=== PATIENT | female | born 1940 | race Caucasian/White ===

== ENCOUNTER 2016-08-24 17:02 | Inpatient (IN) | payer OTHER ==
[~2016-08-24] VITALS: Ht 160 cm; Wt 57.7 kg
[~2016-08-24 17:02] MED LIST: AMLODIPINE BESY10 MG PO; ATARAX,VISTARIL25 MG PO; BENADRYL25 MG PO; CELEXA10 MG PO; DURAGESIC25 MCG TD; HYDROCHLOROTH12.5 M3 PO; LOPRESSOR50 MG PO; NEXIUM40 MG PO; PERCOCET 5/31 TABLET PO; ULTRAM50 MG PO; XANAX0.25 MG PO
[2016-08-24 18:38] LABS: EOSINOPHIL (%) 0.4 % (0-5); HEMATOCRIT 40.5 % (36.0-46.0); IMMATURE GRANULOCYTE (%) 0.1 % (0.0-0.7); IMMATURE GRANULOCYTE COUNT 0.1 K/uL; LYMPHOCYTE COUNT 0.8 K/uL (1.0-2.8); MCH 30.9 PG (29.0-34.0); MCHC 34.3 G/DL (30.0-36.0); MONOCYTE (%) 1.9 % (3-12); MONOCYTE COUNT 0.2 K/uL (0-0.8); NEUTROPHIL (%) 87.8 % (45-76); PLATELET COUNT 226 K/uL (156-360); RBC DIS.WIDTH-CV 12.7 % (11.8-14.6); RBC DIS.WIDTH-SD 40.7 % (39-53); WHITE BLOOD COUNT 7.9 K/uL (4.1-10.2)
[2016-08-24 18:54] LABS: CHLORIDE 103 mEq/L (99-109); POTASSIUM 3.8 mEq/L (3.7-5.4); SODIUM 142 mEq/L (136-147)
[2016-08-24 18:56] LABS: GLUCOSE 141 mg/dL (70-99)
[2016-08-24 18:57] LABS: ANION GAP 14 MEQ/L (2-14)
[2016-08-24 18:58] LABS: TOTAL BILIRUBIN 0.4 mg/dL (0.0-1.0)
[2016-08-24 18:59] LABS: ALKALINE PHOSPHATASE 112 IU/L (3-129)
[2016-08-24 19:00] LABS: GFR ESTIMATE (CALCULATED) 52 mL/min/
[2016-08-24 19:01] LABS: UREA NITROGEN (BUN) 22 mg/dL (9-23)
[2016-08-24 19:03] LABS: CREATINE KINASE 222 IU/L (1-294); TOTAL CK 222 IU/L (1-294); TROP-I INTERPRETATION NEGATIVE; TROPONIN-I 0.01 ng/mL (0.0-0.30)
[2016-08-24 19:08] LABS: CK-MB 4.4 ng/mL (0.0-4.9)
[2016-08-24 20:31] LABS: ADD MIUA? YES; BILIRUBIN NEGATIVE; BLOOD SMALL; COLOR YELLOW ((YELLOW)); GLUCOSE (STRIP) NEGATIVE; KETONES NEGATIVE; LEUKOCYTES NEGATIVE; NITRITE NEGATIVE; PROTEIN (STRIP) 30; UROBILINOGEN 0.2 MG/DL (0.2-1.0)
[2016-08-24 20:52] LABS: BACTERIA NONE SEEN; CASTS NONE SEEN /LPF; CRYSTALS NONE SEEN; EPITHELIAL CELLS RARE; MUCUS NONE SEEN; PATHOLOGICAL CAST NONE SEEN; RED BLOOD CELLS 0-5 /HPF (0-5); SMALL ROUND CELL NONE SEEN; UCUL ADDED? NO; WHITE BLOOD CELLS 0-5 /HPF (0-5); YEAST-LIKE CELL NONE SEEN
[2016-08-24] MEDS ORDERED: ADVIL,NUPRIN,M200 MG PO (22:44)
[2016-08-24] MEDS ORDERED: [UNRECOGNIZED DRUG - SUPPLY] (22:49)
[2016-08-24] MEDS ORDERED: [UNRECOGNIZED DRUG - SUPPLY] (22:50)
[2016-08-24 23:59] VITALS: BP 154/71
[2016-08-25 05:05] VITALS: BP 149/67
[2016-08-25 07:04] VITALS: BP 144/62
[2016-08-25 12:26] VITALS: BP 138/35
[2016-08-25 16:11] VITALS: BP 153/70
[2016-08-25 16:32] LABS: HDL CHOLESTEROL 39 MG/DL (Desirable>=50); LDL CHOLESTEROL 148 mg/dL (Desirable<100); NON-HDL CHOLESTEROL 179 mg/dL (Desirable<160); TOTAL CHOLESTEROL 218 mg/dL (Desirable<200); TRIGLYCERIDES 154 MG/DL (Normal: <150)
[2016-08-25 16:38] LABS: Estimated Average Glucose 111 mg/dL (70-123); HEMOGLOBIN A1c (GLYCOHEMOGLOB) 5.5 % HGB (Below 5.7)
[2016-08-25 20:00] VITALS: BP 165/74
[2016-08-25 23:14] VITALS: BP 162/72
[2016-08-26 03:36] VITALS: BP 139/75
[2016-08-26 05:57] LABS: EOSINOPHIL (%) 0.3 % (0-5); HEMATOCRIT 38.6 % (36.0-46.0); IMMATURE GRANULOCYTE (%) 0.3 % (0.0-0.7); LYMPHOCYTE COUNT 2.2 K/uL (1.0-2.8); MCH 31.1 PG (29.0-34.0); MCHC 33.4 G/DL (30.0-36.0); MEAN PLAT.VOLUME 11.3 uM^3 (9.5-12.4); MONOCYTE COUNT 0.6 K/uL (0-0.8); PLATELET COUNT 199 K/uL (156-360); RBC DIS.WIDTH-SD 44.1 % (39-53); RED BLOOD COUNT 4.15 M/uL (3.80-5.20); WHITE BLOOD COUNT 8.9 K/uL (4.1-10.2)
[2016-08-26 06:22] LABS: ANION GAP 6 MEQ/L (2-14); CHLORIDE 104 MEQ/L (99-109); GFR ESTIMATE (CALCULATED) 47 mL/min/; GLUCOSE 113 mg/dL (70-99); POTASSIUM 3.5 MEQ/L (3.7-5.4); SAMPLE HEMOLYSIS CHECK 0; SAMPLE ICTERIC CHECK 0; SAMPLE LIPEMIA CHECK 0; SODIUM 140 MEQ/L (136-147); UREA NITROGEN (BUN) 13 mg/dL (9-23)
[2016-08-26 07:50] VITALS: BP 174/79
[2016-08-26 07:53] VITALS: BP 170/81
[2016-08-26 11:14] VITALS: BP 179/74
[2016-08-26 20:03] VITALS: BP 157/69
[2016-08-26 23:58] VITALS: BP 135/67
[2016-08-27 04:00] VITALS: BP 138/68
[2016-08-27 06:15] LABS: EOSINOPHIL (%) 0.7 % (0-5); EOSINOPHIL COUNT 0.1 K/uL (0-0.3); HEMATOCRIT 40.5 % (36.0-46.0); IMMATURE GRANULOCYTE (%) 0.2 % (0.0-0.7); MCH 31.5 PG (29.0-34.0); MCHC 34.6 G/DL (30.0-36.0); MCV 91.2 FL (83-99); MEAN PLAT.VOLUME 11.5 uM^3 (9.5-12.4); MONOCYTE (%) 7.6 % (3-12); MONOCYTE COUNT 0.7 K/uL (0-0.8); NEUTROPHIL (%) 70.6 % (45-76); NEUTROPHIL COUNT 6.9 K/uL (1.8-6.4); PLATELET COUNT 225 K/uL (156-360); RBC DIS.WIDTH-CV 12.8 % (11.8-14.6); RBC DIS.WIDTH-SD 42.7 % (39-53); RED BLOOD COUNT 4.44 M/uL (3.80-5.20); WHITE BLOOD COUNT 9.8 K/uL (4.1-10.2)
[2016-08-27 06:46] LABS: ANION GAP 9 MEQ/L (2-14); CHLORIDE 100 MEQ/L (99-109); GFR ESTIMATE (CALCULATED) 52 mL/min/; GLUCOSE 102 mg/dL (70-99); POTASSIUM 3.8 MEQ/L (3.7-5.4); SAMPLE HEMOLYSIS CHECK 0; SAMPLE ICTERIC CHECK 0; SAMPLE LIPEMIA CHECK 0; SODIUM 137 MEQ/L (136-147); UREA NITROGEN (BUN) 16 mg/dL (9-23)
[2016-08-27 07:50] VITALS: BP 159/66
[2016-08-27 11:40] VITALS: BP 139/64
[2016-08-27 15:45] VITALS: BP 145/66
[2016-08-27 20:00] VITALS: BP 137/81
[2016-08-28] VITALS: BP 134/69
[2016-08-28 03:38] VITALS: BP 168/67
[2016-08-28 07:54] VITALS: BP 147/66
[2016-08-28 11:52] VITALS: BP 140/65
[2016-08-28 15:59] VITALS: BP 152/66
[2016-08-28 19:30] VITALS: BP 152/69
[2016-08-29 00:02] VITALS: BP 139/70
[2016-08-29 03:41] VITALS: BP 141/65
[2016-08-29 08:32] VITALS: BP 142/69
[2016-08-29 11:12] VITALS: BP 120/60
[2016-08-29 15:28] VITALS: BP 116/63
[2016-08-29 20:00] VITALS: BP 138/64
[2016-08-30] VITALS: BP 129/66
[2016-08-30 04:00] VITALS: BP 119/61
[2016-08-30 07:43] VITALS: BP 154/66
[2016-08-30 11:13] VITALS: BP 139/61
[2016-08-30] MEDS ORDERED: LOVENOX40 MG/0.4 SC (12:26)
[2016-08-30] MEDS ORDERED: PRAVASTATIN SOD80 MG PO (12:26)
[2016-08-30] MEDS ORDERED: LOSARTAN POTAS100 MG PO (12:26)
[2016-08-30] MEDS ORDERED: ASPIR-LOW81 MG PO (12:27)
[2016-08-30] MEDS ORDERED: TYLENOL REGULA325 MG PO (12:27)
[2016-08-30] MEDS ORDERED: ANTIVERT12.5 MG PO (14:48)
[2016-08-30] MEDS ORDERED: ZOFRAN4 MG PO (14:49)
== END 2016-08-30 13:38 | DRG 66 ==
LOC: EME 17:02 → EDOF 22:43 → 5WEST 22:43 → 5SOUTH 08-25 10:15 → 5WEST 08-25 10:15 → 5SOUTH 08-26 15:35
PROVIDERS: Emergency Medicine; Internal Medicine
DX: I63.9 Cerebral infarction, unspecified (principal); H81.49 Vertigo of central origin, unspecified ear; R27.0 Ataxia, unspecified; T81.89XA Other complications of procedures, not elsewhere classified, initial encounter; Y83.8 Other surgical procedures as the cause of abnormal reaction of the patient, or of later complication, without mention of misadventure at the time of the procedure; C44.722 Squamous cell carcinoma of skin of right lower limb, including hip; I10 Essential (primary) hypertension; K21.9 Gastro-esophageal reflux disease without esophagitis; I25.10 Atherosclerotic heart disease of native coronary artery without angina pectoris; F17.210 Nicotine dependence, cigarettes, uncomplicated; S51.011A Laceration without foreign body of right elbow, initial encounter; X58.XXXA Exposure to other specified factors, initial encounter; Z85.41 Personal history of malignant neoplasm of cervix uteri; Z88.0 Allergy status to penicillin; Z88.5 Allergy status to narcotic agent; Z91.040 Latex allergy status
CPT/HCPCS: 70450; 70496; 70498; 70553; 71020; 72125; 80048; 80053; 80061; 81003; 82550; 82553; 83036; 84484; 85025; 93005; 93306; 97530 GO; 97530 GP; 99281; 99285; G0378; G8978 GP CM; G8979 CJ; J1650; J2405; J7030

== ENCOUNTER 2016-08-30 13:56 | Inpatient (IN) | payer OTHER ==
[~2016-08-30] VITALS: Ht 160 cm; Wt 54.7 kg
[~2016-08-30 13:56] MED LIST changes: +ADVIL,NUPRIN,M200 MG PO; +ASPIR-LOW81 MG PO; +LOSARTAN POTAS100 MG PO; +LOVENOX40 MG/0.4 SC; +PRAVASTATIN SOD80 MG PO; +TYLENOL REGULA325 MG PO; +[UNRECOGNIZED DRUG - SUPPLY]; +[UNRECOGNIZED DRUG - SUPPLY]
[2016-08-30 14:02] VITALS: BP 118/55
[2016-08-30] MEDS ORDERED: ANTIVERT12.5 MG PO (14:48)
[2016-08-30] MEDS ORDERED: ZOFRAN4 MG PO (14:49)
[2016-08-30 23:07] VITALS: BP 117/56
[2016-08-31 05:17] LABS: HEMATOCRIT 42.7 % (36.0-46.0); MCH 32.1 PG (29.0-34.0); MCHC 35.1 G/DL (30.0-36.0); MCV 91.2 FL (83-99); MEAN PLAT.VOLUME 11.8 uM^3 (9.5-12.4); PLATELET COUNT 218 K/uL (156-360); RBC DIS.WIDTH-CV 12.9 % (11.8-14.6); RBC DIS.WIDTH-SD 42.7 % (39-53); RED BLOOD COUNT 4.68 M/uL (3.80-5.20); WHITE BLOOD COUNT 8.6 K/uL (4.1-10.2)
[2016-08-31 05:45] VITALS: BP 120/58
[2016-08-31 05:55] LABS: ALKALINE PHOSPHATASE 86 IU/L (3-129); ANION GAP 9 MEQ/L (2-14); CHLORIDE 99 MEQ/L (99-109); GFR ESTIMATE (CALCULATED) 36 mL/min/; GLUCOSE 100 mg/dL (70-99); POTASSIUM 3.7 MEQ/L (3.7-5.4); SAMPLE HEMOLYSIS CHECK 0; SAMPLE ICTERIC CHECK 0; SAMPLE LIPEMIA CHECK 0; SODIUM 136 MEQ/L (136-147); TOTAL BILIRUBIN 0.6 MG/DL (0.0-1.0)
[2016-08-31 06:00] LABS: UREA NITROGEN (BUN) 36 mg/dL (9-23)
[2016-08-31 15:43] VITALS: BP 116/58
[2016-08-31 20:42] VITALS: BP 132/78
[2016-09-01 05:21] VITALS: BP 128/67
[2016-09-01 15:23] VITALS: BP 117/55
[2016-09-02 05:45] VITALS: BP 146/66
[2016-09-02 14:52] VITALS: BP 150/50
[2016-09-03 04:35] VITALS: BP 114/56
[2016-09-03 15:16] VITALS: BP 125/64
[2016-09-04 16:27] VITALS: BP 133/68
[2016-09-05 06:53] VITALS: BP 132/60
[2016-09-05 15:42] VITALS: BP 127/63
[2016-09-06 05:51] VITALS: BP 137/64
[2016-09-06 14:45] VITALS: BP 127/59
[2016-09-07 05:19] VITALS: BP 120/57
[2016-09-07 15:17] VITALS: BP 133/61
[2016-09-08 04:38] VITALS: BP 123/69
[2016-09-08 15:01] VITALS: BP 122/57
[2016-09-09 05:09] VITALS: BP 150/67
[2016-09-09 15:20] VITALS: BP 122/57
[2016-09-10 05:49] VITALS: BP 150/56
[2016-09-10] MEDS ORDERED: SENNA PLUS TAB1 EACH PO (08:05)
[2016-09-10] MEDS ORDERED: AMLODIPINE BESY10 MG PO (08:05)
[2016-09-10] MEDS ORDERED: PRAVASTATIN SOD80 MG PO (08:05)
[2016-09-10] MEDS ORDERED: ASPIR-LOW81 MG PO (08:05)
[2016-09-10] MEDS ORDERED: CITALOPRAM HBR10 MG PO (08:05)
[2016-09-10] MEDS ORDERED: ANTIVERT12.5 MG PO (08:05)
[2016-09-10] MEDS ORDERED: LOSARTAN POTAS100 MG PO (08:05)
[2016-09-10] MEDS ORDERED: PANTOPRAZOLE SO40 MG PO (08:05)
== END 2016-09-10 14:50 | disposition home health service (06) | DRG 57 ==
LOC: 3WEST 13:56
PROVIDERS: Physical Medicine & Rehabilitation Pain Medicine
PROC: F07M0ZZ Range of Motion and Joint Mobility Treatment of Musculoskeletal System - Whole Body (ICD-10-PCS; principal; 2016-08-30)
DX: I69.00 Unspecified sequelae of nontraumatic subarachnoid hemorrhage (principal); M47.12 Other spondylosis with myelopathy, cervical region; K21.9 Gastro-esophageal reflux disease without esophagitis; I10 Essential (primary) hypertension; I25.10 Atherosclerotic heart disease of native coronary artery without angina pectoris; H91.90 Unspecified hearing loss, unspecified ear; F17.210 Nicotine dependence, cigarettes, uncomplicated; K57.90 Diverticulosis of intestine, part unspecified, without perforation or abscess without bleeding; M79.1 Myalgia; M54.12 Radiculopathy, cervical region; R42 Dizziness and giddiness; I65.23 Occlusion and stenosis of bilateral carotid arteries; L59.8 Other specified disorders of the skin and subcutaneous tissue related to radiation; Y84.2 Radiological procedure and radiotherapy as the cause of abnormal reaction of the patient, or of later complication, without mention of misadventure at the time of the procedure; S51.011D Laceration without foreign body of right elbow, subsequent encounter; R26.0 Ataxic gait; M50.90 Cervical disc disorder, unspecified, unspecified cervical region; M25.512 Pain in left shoulder; R10.13 Epigastric pain; F32.9 Major depressive disorder, single episode, unspecified; Z85.42 Personal history of malignant neoplasm of other parts of uterus; Z85.828 Personal history of other malignant neoplasm of skin; Z92.3 Personal history of irradiation; Z98.890 Other specified postprocedural states; Z91.040 Latex allergy status; Z88.6 Allergy status to analgesic agent; Z88.0 Allergy status to penicillin
CPT/HCPCS: 73030; 80053; 85027; 97110 GO; 97530 GP; J1650

== ENCOUNTER 2016-09-29 16:06 | Inpatient (IN) | payer OTHER ==
[~2016-09-29] VITALS: Ht 137.2 cm; Wt 52.9 kg
[~2016-09-29 16:06] MED LIST changes: +ANTIVERT12.5 MG PO; +CITALOPRAM HBR10 MG PO; +PANTOPRAZOLE SO40 MG PO; +SENNA PLUS TAB1 EACH PO; +ZOFRAN4 MG PO
[2016-09-29 17:50] LABS: EOSINOPHIL (%) 2.3 % (0-5); EOSINOPHIL COUNT 0.2 K/uL (0-0.3); HEMATOCRIT 39.1 % (36.0-46.0); IMMATURE GRANULOCYTE (%) 0.3 % (0.0-0.7); IMMATURE GRANULOCYTE COUNT 0.3 K/uL; LYMPHOCYTE COUNT 0.9 K/uL (1.0-2.8); MCH 30.4 PG (29.0-34.0); MCHC 33.2 G/DL (30.0-36.0); MCV 91.6 FL (83-99); MEAN PLAT.VOLUME 11.1 uM^3 (9.5-12.4); MONOCYTE (%) 5.7 % (3-12); MONOCYTE COUNT 0.6 K/uL (0-0.8); NEUTROPHIL COUNT 8.4 K/uL (1.8-6.4); PLATELET COUNT 199 K/uL (156-360); RBC DIS.WIDTH-CV 12.7 % (11.8-14.6); RED BLOOD COUNT 4.27 M/uL (3.80-5.20); WHITE BLOOD COUNT 10.1 K/uL (4.1-10.2)
[2016-09-29 17:57] LABS: CHLORIDE 108 mEq/L (99-109); POTASSIUM 3.6 mEq/L (3.7-5.4); SODIUM 145 mEq/L (136-147)
[2016-09-29 17:59] LABS: GLUCOSE 139 mg/dL (70-99)
[2016-09-29 18:01] LABS: ANION GAP 11 MEQ/L (2-14)
[2016-09-29 18:03] LABS: GFR ESTIMATE (CALCULATED) 47 mL/min/
[2016-09-29 18:04] LABS: UREA NITROGEN (BUN) 11 mg/dL (9-23)
[2016-09-29 18:09] LABS: TROP-I INTERPRETATION NEGATIVE; TROPONIN-I 0.03 ng/mL (0.0-0.30)
[2016-09-29 18:48] LABS: ADD MIUA? YES; BILIRUBIN NEGATIVE; BLOOD SMALL; COLOR YELLOW ((YELLOW)); GLUCOSE (STRIP) NEGATIVE; KETONES NEGATIVE; LEUKOCYTES TRACE; NITRITE POSITIVE; PROTEIN (STRIP) NEGATIVE; SPECIFIC GRAVITY 1.009 (1.000-1.030); UROBILINOGEN 0.2 MG/DL (0.2-1.0)
[2016-09-29 19:08] LABS: BACTERIA RARE /HPF; EPITHELIAL CELLS NONE SEEN /HPF; MUCUS NONE SEEN /LPF; RED BLOOD CELLS 0-5 /HPF (0-5); UCUL ADDED? NO
[2016-09-29] MEDS ORDERED: TYLENOL EXTRA500 MG PO (20:42)
[2016-09-29 22:28] VITALS: BP 138/68
[2016-09-30] VITALS (8 sets, daily range): BP systolic 124–183; BP diastolic 61–95
[2016-09-30 07:12] LABS: ANION GAP 10 MEQ/L (2-14); CHLORIDE 107 MEQ/L (99-109); GFR ESTIMATE (CALCULATED) 52 mL/min/; HDL CHOLESTEROL 37 MG/DL (Desirable>=50); LDL CHOLESTEROL 52 mg/dL (Desirable<100); NON-HDL CHOLESTEROL 79 mg/dL (Desirable<160); POTASSIUM 3.9 MEQ/L (3.7-5.4); SAMPLE HEMOLYSIS CHECK 0; SAMPLE ICTERIC CHECK 0; SAMPLE LIPEMIA CHECK 0; SODIUM 143 MEQ/L (136-147); TOTAL CHOLESTEROL 116 mg/dL (Desirable<200); TRIGLYCERIDES 137 MG/DL (Normal: <150); UREA NITROGEN (BUN) 9 mg/dL (9-23)
[2016-09-30 07:21] LABS: GLUCOSE 91 mg/dL (70-99)
[2016-10-01 00:34] VITALS: BP 147/71
[2016-10-01 03:34] VITALS: BP 150/77
[2016-10-01 07:45] VITALS: BP 150/89
[2016-10-01 10:41] VITALS: BP 136/69
[2016-10-01] MEDS ORDERED: PRAVASTATIN SOD80 MG PO (11:45)
[2016-10-01] MEDS ORDERED: CITALOPRAM HBR10 MG PO (11:45)
[2016-10-01] MEDS ORDERED: PANTOPRAZOLE SO40 MG PO (11:45)
[2016-10-01] MEDS ORDERED: NORVASC10 MG PO (11:46)
[2016-10-01] MEDS ORDERED: ASPIR 8181 M1 PO (11:46)
[2016-10-01 15:29] VITALS: BP 117/63
[2016-10-01 19:36] VITALS: BP 118/64
[2016-10-02] VITALS (7 sets, daily range): BP systolic 109–163; BP diastolic 56–95
[2016-10-02 06:56] LABS: HEMATOCRIT 37.9 % (36.0-46.0); MCH 30.2 PG (29.0-34.0); MCV 91.5 FL (83-99); MEAN PLAT.VOLUME 11.3 uM^3 (9.5-12.4); PLATELET COUNT 203 K/uL (156-360); RBC DIS.WIDTH-CV 12.5 % (11.8-14.6); RBC DIS.WIDTH-SD 41.5 % (39-53); RED BLOOD COUNT 4.14 M/uL (3.80-5.20); WHITE BLOOD COUNT 7.9 K/uL (4.1-10.2)
[2016-10-02 07:18] LABS: ANION GAP 8 MEQ/L (2-14); CHLORIDE 107 MEQ/L (99-109); GFR ESTIMATE (CALCULATED) 47 mL/min/; GLUCOSE 95 mg/dL (70-99); POTASSIUM 4.1 MEQ/L (3.7-5.4); SAMPLE HEMOLYSIS CHECK 0; SAMPLE ICTERIC CHECK 0; SAMPLE LIPEMIA CHECK 0; SODIUM 141 MEQ/L (136-147); UREA NITROGEN (BUN) 12 mg/dL (9-23)
[2016-10-03 03:50] VITALS: BP 118/67
[2016-10-03 08:14] VITALS: BP 135/74
[2016-10-03 11:24] VITALS: BP 99/60
[2016-10-03] MEDS ORDERED: CLOPIDOGREL75 MG PO ×2 (11:35→17:53)
[2016-10-03] MEDS ORDERED: ANTIVERT25 MG PO ×2 (11:35→17:53)
[2016-10-03] MEDS ORDERED: ONDANSETRON ODT4 MG PO ×2 (11:35→17:53)
[2016-10-03] MEDS ORDERED: PANTOPRAZOLE SO40 MG PO (17:53)
[2016-10-03] MEDS ORDERED: TYLENOL EXTRA500 MG PO (17:53)
[2016-10-03] MEDS ORDERED: NORVASC10 MG PO (17:53)
[2016-10-03] MEDS ORDERED: PRAVASTATIN SOD80 MG PO (17:53)
[2016-10-03] MEDS ORDERED: CITALOPRAM HBR10 MG PO (17:53)
[2016-10-03] MEDS ORDERED: SENNA PLUS TAB1 EACH PO (17:53)
[2016-10-03] MEDS ORDERED: ASPIR 8181 M1 PO (17:53)
[2016-10-03] MEDS ORDERED: LOSARTAN POTAS100 MG PO (17:53)
== END 2016-10-03 17:58 | disposition home health service (06) | DRG 65 ==
LOC: EME → EDBD 16:06 → EDOF 20:43 → 5WEST 20:43 → EDOF 20:43 → 5WEST 21:37 → 5SOUTH 09-30 10:39
PROVIDERS: Emergency Medicine; Physician Assistant Medical
DX: I63.449 Cerebral infarction due to embolism of unspecified cerebellar artery (principal); N30.00 Acute cystitis without hematuria; R53.1 Weakness; N18.3 Chronic kidney disease, stage 3 (moderate); E87.6 Hypokalemia; I69.393 Ataxia following cerebral infarction; I12.9 Hypertensive chronic kidney disease with stage 1 through stage 4 chronic kidney disease, or unspecified chronic kidney disease; R42 Dizziness and giddiness; K21.9 Gastro-esophageal reflux disease without esophagitis; B96.20 Unspecified Escherichia coli [E. coli] as the cause of diseases classified elsewhere; I25.10 Atherosclerotic heart disease of native coronary artery without angina pectoris; Z87.891 Personal history of nicotine dependence; T81.89XA Other complications of procedures, not elsewhere classified, initial encounter; Y84.8 Other medical procedures as the cause of abnormal reaction of the patient, or of later complication, without mention of misadventure at the time of the procedure
CPT/HCPCS: 70450; 70551; 71010; 74000; 80048; 80061; 81003; 84484; 85025; 85027; 87077; 87086; 87186; 93005; 99281; 99285; G0378; J1644; J1956; J2405; J3480